=== PATIENT | female | born 1985 | race Caucasian/White ===

== ENCOUNTER 2021-03-16 11:16 | Emergency (ER) | payer BC, OTHER ==
[2021-03-16] MEDS ORDERED: Ketorolac 30 MG/ML SDV IM ONE (11:33)
[2021-03-16 11:41] VITALS: BP 145/79; PULSE 96
--- NOTE | 2021-03-16 12:40 | EDM.PDOC ---
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 Her HCG at that time was 4155. She was given Percocet for pain relief which she says is not helping enough. Has an appt with OB in [place] for recheck tomorrow. Is taking ibuprofen and acetaminophen with the oxycodone 5 mg tablets still without relief. She thinks the f/u with OB in [place] is not until , as there were no appt's available on Mon. Is having vaginal bleeding now. Onset: Gradual Duration: Day(s):, Getting Worse Location: Reports: Pelvis Quality: Reports: Ache Severity: Moderate Improves with: Reports: Rest Worsens with: Reports: Movement (or bending at the waist) Context: Reports: Other (See HPI) Associated Symptoms: Reports: Other (light-headed with standing at times). Denies: Fever/Chills, Nausea/Vomiting Treatments SUPPLY CHAIN TECH: Reports: Acetaminophen, NSAIDS, Other (see below) (oxycodone 5 mg) Left Pelvic Pain Score (Numeric/FACES): 10 - Related Data Allergies Allergy/AdvReac Type Severity Reaction Status Date / Time azithromycin [From Zithromax] Allergy Hives Verified 03/16/21 11:44 doxycycline Allergy Hives Verified 03/16/21 11:44 erythromycin base Allergy Hives Verified 03/16/21 11:44 Home Meds: Home Meds Albuterol Sulfate 2.5 mg IH ASDIRECTED PRN 03/02/16 [History] Cholecalciferol (Vitamin D3) [Vitamin D] 1 tab PO DAILY 03/02/16 [History] L.acidoph,Paracasei, B.lactis [Probiotic] 1 tab PO DAILY PRN 03/02/16 [History] Phentermine HCl 15 mg PO DAILY 03/16/21 [History] metFORMIN [Glucophage] 500 mg PO BIDMEALS 03/16/21 [History] oxyCODONE 1 tab PO Q4HR 03/16/21 [History] Past Medical History HEENT History: Reports: Sinusitis Respiratory History: Reports: Asthma 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: Endocrine/Metabolic History: Reports: Diabetes, Type II, Vitamin D Deficiency - Infectious Disease History Infectious Disease History: Reports: Chicken Pox - Past Surgical History HEENT Surgical History: Reports: Adenoidectomy, Naso-Sinus Surgery, Tonsillectomy GI Surgical History: Reports: Cholecystectomy Social & Family History - Tobacco Use Tobacco Use Status *Q: Never Tobacco User - Caffeine Use Caffeine Use: Reports: Coffee - Recreational Drug Use Recreational Drug Use: No ED ROS GENERAL - Review of Systems Review Of Systems: See Below Constitutional: Reports: No Symptoms HEENT: Reports: No Symptoms Respiratory: Reports: No Symptoms Cardiovascular: Reports: No Symptoms GI/Abdominal: Reports: Abdominal Pain (pelvic pain). Denies: Nausea : Reports: Pain (pelvis), Other (menses) Musculoskeletal: Reports: No Symptoms Skin: Reports: No Symptoms Neurological: Reports: No Symptoms Psychiatric: Reports: No Symptoms ED EXAM, RENAL/ - Physical Exam Exam: See Below Exam Limited By: No Limitations General Appearance: Alert, WD/WN, Mild Distress, Obese Eye Exam: Bilateral Eye: Normal Inspection Ears: Normal External Exam, Normal Canal, Hearing Grossly Normal Nose: Normal Inspection, No Blood Throat/Mouth: Normal Inspection, Normal Lips, Normal Oropharynx, Normal Voice, No Airway Compromise Head: Atraumatic, Normocephalic Neck: Normal Inspection Respiratory/Chest: No Respiratory Distress, Lungs Clear, Normal Breath Sounds, No Accessory Muscle Use Cardiovascular: Regular Rate, Rhythm, No Edema GI/Abdominal: Normal Bowel Sounds, Soft, Tender (pelvic). No: Non-Tender, Distended, Guarding, Rigid, Rebound Back Exam: Normal Inspection. No: CVA Tenderness (R), CVA Tenderness (L) Extremities: Normal Inspection, Normal Range of Motion, Non-Tender, No Pedal Edema Neurological: Alert, Oriented, CN II-XII Intact, Normal Cognition, No Motor/Sensory Deficits Psychiatric: Normal Affect, Normal Mood Skin Exam: Warm, Dry, Intact, Normal Color, No Rash Course - Vital Signs Last Recorded V/S: Last Vital Signs Temp 36.4 C 03/16/21 11:50 Pulse 96 03/16/21 11:50 Resp 20 03/16/21 11:50 BP 145/79 H 12/14/21 11:50 Pulse Ox 98 03/16/21 11:50 Orthostatic Blood Pressure [ 138/83 Standing] Orthostatic Blood Pressure [ 125/75 Sitting] Orthostatic Blood Pressure [ 139/82 Supine] - Orders/Labs/Meds Orders: Active Orders 24 hr Category Date Time Status Orthostatic Vital Signs [RC] ASDIRECTED Care 03/16/21 12:44 Active Pelvis Non OB Ltd [US] Stat Exams 03/16/21 13:13 Ordered Labs: Laboratory Tests 03/16/21 Range/Units 11:40 HCG, Quant 2034 H (0-6) mIU/mL Meds: Medications Discontinued Medications Generic Name Dose Route Start Last Admin Trade Name Freq PRN Reason Stop Dose Admin Ketorolac Tromethamine 30 mg 03/16/21 11:33 03/16/21 12:04 Ketorolac 30 Mg/Ml Sdv IM 03/16/21 11:34 30 mg ONETIME ONE Administration Oxycodone HCl 5 mg 03/16/21 13:13 03/16/21 13:28 Oxycodone 5 Mg Tab PO 03/16/21 13:14 5 mg ONETIME ONE Administration - Radiology Interpretation Free Text/Narrative:: Pelvic US-min free fluid noted Departure - Departure Time of Disposition: 14:18 Disposition: Home, Self-Care 01 Condition: Fair Clinical Impression: Ectopic of left ovary, Pelvic pain - Discharge Information *PRESCRIPTION DRUG MONITORING PROGRAM REVIEWED*: Not Applicable *COPY OF PRESCRIPTION DRUG MONITORING REPORT IN PATIENT AJAY: Not Applicable Referrals: PCP,None [Primary Care Provider] - Forms: ED Department Discharge Additional Instructions: Take ibuprofen 600 mg and acetaminophen 1000 mg every 6 hrs for pain relief. Add oxycodone 5-10 mg every 6 hrs for added relief. Keep your appt in [place] for this coming . Return if worse. Drink ample amts of fluids. Sepsis Event Note (ED) - Evaluation Sepsis Screening Result: No Definite Risk - Focused Exam Vital Signs: Vital Signs Temp Pulse Resp BP Pulse Ox 03/16/21 11:50 36.4 C 96 20 145/79 H 98 03/16/21 11:39 36.4 C 96 20 145/79 H 98 - My Orders Last 24 Hours: My Active Orders 03/16/21 12:44 Orthostatic Vital Signs [RC] ASDIRECTED 03/16/21 13:13 Pelvis Non OB Ltd [US] Stat - Assessment/Plan Last 24 Hours: My Active Orders 03/16/21 12:44 Orthostatic Vital Signs [RC] ASDIRECTED 03/16/21 13:13 Pelvis Non OB Ltd [US] Stat
[2021-03-16] MEDS ORDERED: oxyCODONE 5 MG Tab PO ONE (13:13)
--- NOTE | 2021-03-16 15:09 | US ---
Transvaginal Non OB, Pelvis Non OB Ltd CLINICAL HISTORY: Left-sided pelvic pain, recent ectopic FINDINGS: Real-time transabdominal and transvaginal images are obtained through the pelvis. There is an ID in the uterus. It measures 8.9 x 6.7 x 4.4 cm. Endotracheal thickness is 3 mm. Neither ovary is identified. There is some free fluid in the cul-de-sac. There are some internal echoes. Review of prior CT 03/15/2021 does not show significant free fluid in the pelvis. There is a prominent soft tissue focus in the left adnexal region. IMPRESSION: Free fluid in the pelvis new since CT of of 03/15/[address] No soft tissue mass identified
== END 2021-03-16 14:29 | disposition home or self-care (01) ==
LOC: JP.ED 11:16
DX: O00.212 Left ovarian pregnancy with intrauterine pregnancy (principal); E11.9 Type 2 diabetes mellitus without complications; Z88.1 Allergy status to other antibiotic agents; Z79.84 Long term (current) use of oral hypoglycemic drugs; Z3A.00 Weeks of gestation of pregnancy not specified
CPT/HCPCS: 36415; 76830; 76857; 84702; 96372; 99284; A9270; J1885